=== PATIENT | female | born 1975 | race Caucasian/White ===

== ENCOUNTER 2018-07-02 19:11 | Observation (INO) | payer OTHER ==
--- OUTSIDE RECORDS SUMMARY | 2018-07-02 19:43 | XMS REPORT | Continuity of Care Document ---
:1975 External Reference #:[id number] Author Name Mattie Lyn Care Team Providers Name Role Phone Valentina Castellanos MD Primary Care Physician Unavailable Payers Type Date Identification Numbers Payment Provider Subscriber Expires: 2013 Policy Number: [id number] [employer] Rosanne Quinones PayID: [id number] [address] [address] [place] [address] Policy Number: [id number] [employer] Rosanne Quinones PayID: [id number] [address] [place] [address] Advance Directives Description No Information Available Problems Description No Information Family History Date Family Member(s) Problem(s) Comments Father Migraine Maternal Grandfather Cancer Maternal Grandmother Cancer Social History Type Date Description Comments Sex Unknown Lives With Children Lives With Male Partner Occupation legal administrative assistant ETOH Use Occasionally consumes alcohol Tobacco Use Start: Unknown Patient has never smoked Smoking Status Reviewed: 06/28/18 Patient has never smoked Allergies, Adverse Reactions, Alerts Date Description Reaction Status Severity Comments 02/11/2012 Penicillin Anaphylaxis Active Medications Medication Date Status Form Strength Qnty SIG Indications Ordering Provider Doxycycline Active Capsules 100mg 20caps bid po Unknown Hyclate 000 Turmeric Active Capsules 450mg every Unknown 000 day Co-Enzyme Q10 0 Active Capsules 100mg po qd Unknown 000 Biotin 0 Active Tablets 300mcg 2 tabs Unknown 000 every day Milk Thistle 0 Active Capsules 500mg every Unknown 000 day Folic Acid 0 Active Tablets 400mcg 1n po Unknown 000 qd Vitamin B-12 0 Active Tablets ER 1500mcg 1 po qd Unknown LA 000 L-Carnitine Active Capsules 250mg Unknown 000 Vitamin C Active Tablets 1000mg 1 by Unknown 000 mouth every day Proferrin ES Active Tablets 12mg Unknown 000 Horse Cedar Active Capsules 300mg Unknown 000 Ventolin HFA Hx Aerosol 108(90Base) 1units 1-2 Unknown 000 - mcg/ac puffs po qid 012 prn Vitamin D-1000 Hx Tablets 1000Unit 90tabs 1 po Unknown 000 - bid 012 Immunizations Description No Information Available Vital Signs Date Vital Result Comment 06/28/2018 1:07pm Height 66 inches 5'6" Weight 140.00 lb Heart Rate 68 /min BP Systolic 114 mmHg BP Diastolic 76 mmHg O2 % BldC Oximetry 99 % BMI (Body Mass Index) 22.6 kg/m2 07/28/2013 11:52am Heart Rate 67 /min BP Systolic Sitting 120 mmHg BP Diastolic Sitting 70 mmHg Respiratory Rate 16 /min 02/11/2012 3:31pm Height 67 inches 5'7" Weight 120.00 lb Heart Rate 68 /min Respiratory Rate 16 /min Body Temperature 98.4 F BMI (Body Mass Index) 18.8 kg/m2 Results Test Date Facility Test Result H/L Range Note Laboratory test 07/29/2013 [facility] Vitamin B3 1.66 ug/mL N [address] [place] [address] [phone] Vitamin B6 07/29/2013 [facility] Pyridoxal 9 g/L N 5-50 [address] [facility] 5[place] [address] [phone] Pyridoxic Acid 4 g/L N 3-30 2 Laboratory test 07/29/2013 [facility] Vitamin B2 Level 5 g/L N 1-19 3 [address] [place] [address] [phone] Vitamin B1 Whole Blood 161 nmol/L N 70-180 4 Urinalysis 02/28/2013 [facility] Urine Color Yellow [address] [place] [address] [phone] Urine Appearance Clear Urine Specific Broseley 1.023 1.010-1.030 Urine Esterase Negative Negative Urine Nitrate Negative Negative Urine Urobilinogen Negative E.U./dL Negative Urine Protein Negative mg/dL Negative Urine pH 7.0 5-9 Urine Blood Negative Negative Urine Ketones Trace mg/dL Abnormal Negative Urine Bilirubin Negative Negative Urine Glucose Negative mg/dL Negative Laboratory test 02/11/2012 [facility] Erythrocyte Sed <pending> finding [address] [place] [address] [phone] 1 Adult Reference Range >10 years Normal 0.50 - 8.45 Low < 0.50 High > 8.45 Pediatric Reference Range <10 years Normal 0.50 - 8.91 Low < 0.50 High > 8.91 The performance characteristics of the listed assay was validated by [facility]. The [place] FDA has not approved or cleared this test. The results of this assay can be used for clinical diagnosis without FDA approval. [facility]. is a CLIA certified, CAP accredited laboratory for performing high complexity assays such as this one. Test Performed by: [facility]. [address] [place] [address] 2 Test Performed by: [place] [address] Manager Web Application: Mouna Cifuentes, Ph.D. 3 Test Performed by: [place] [address] Manager Web Application: Mouna Cifuentes, Ph.D. 4 Test Performed by: [place] [address] Manager Web Application: Mouna Cifuentes, Ph.D. Procedures Date Code Description Status 07/27/2012 48718 ECHO Transthoracic, Real-Time 2D With Doppler And Color Completed Flow Encounters Type Date Location Provider Dx Diagnosis Office Visit 07/28/2013 [facility] Jorge Reyes 780.79 Malaise And 11:45a Services Of Cullen Weems M.D. Fatigue Other 799.59 Other Signs And Symptoms Involving Cognition Office Visit 03/01/2013 10:56a [facility] Eamon 780.4 Dizziness & Assoc,pc Shahnaz Corcoran Hospitalists Office Visit 02/28/2013 10:56a [facility] Ashley Gibson, 780.4 Dizziness & Assoc,vikas Zuniga Hospitalists Office Visit 05/10/2012 11:45a [facility] Tete M. 799.59 Other Signs And Services Of [facility] Sarmad Weems Symptoms Involving Cognition 780.79 Malaise And Fatigue Other Office Visit 02/11/2012 3:20p [facility] Chacho Richard 799.59 Other Signs And Infectious Sarmad Amaya Symptoms Diseases Involving Cognition Office Visit 01/22/2012 3:45p [facility] Tete Reyes 780.4 Dizziness & Services Of [facility] Sarmad Weems Giddiness 799.59 Other Signs And Symptoms Involving Cognition 346.90 Migraine Unspec W/O Intractable W/O Status Migrainosus Plan of Treatment 06/28/2018 - Shalonda Vera, NPR53.83 Other fatigueNew Labs:CBC Auto Diff, Ordered: 06/28/18Comp Metabolic Panel, Ordered: 06/28/18CRP High Sensitivity, Ordered: 06/28/18Zinc Serum, Ordered: 06/28/18Lead, Ordered: 06/28/18Ferritin, Ordered: 06/28/18Recommendations:Please follow up with Dr. Kirby I will send you your Basic Metabolic Rate and amount of calories youshould be including daily - calculate your daily intake consider using [employer] krista. check labsand we will follow up through portal.R01.1 Cardiac murmur, unspecifiedReferral:Portillo Friedman, DO, FACC, Cardiovsclr Disease
--- NOTE | 2018-07-02 21:32 | ED ---
Neurological HPI - HPI Summary HPI Summary: This patient is a 43 year old F presenting to [facility] with a chief complaint of neurological deficit since earlier today. The episode lasted several hours but is better right now. The patient rates the pain 3/10 in severity. Patient reports RUANO, slowed speech, muted senses, confusion, and difficulty communicating. The patient drove 2.5 hours south today. Upon arriving, she could not form sentences for the course of 30 minutes. [address] the 2.[address] back to [place], her boyfriend stated that her speech continued to be weird, she seemed confused, and her sentences were trailing off. At 18:00, the patient felt better, and her boyfriend confirmed that she was acting normal again. The RUANO moved from the left to right side throughout the day. Her normal migraines are not like the one today, she often has sensory overload instead of sensory muting. The patient took two Aspirin earlier today to treat the RUANO symptoms. PMHX migraines. Vitals in the room: HR 101 bpm, BP 140/91. - History of Current Complaint Chief Complaint: EDNeurologicalDeficit Stated Complaint: HEADACHE/CONFUSION Time Seen by Provider: 07/02/18 21:13 Hx Obtained From: Patient Hx Last Menstrual Period: 06/08/12 Onset/Duration: Sudden Onset, Started hours ago, Resolved Timing: Intermittent Episodes Lasting: - several hours Headache Location: Diffuse (Left) Pain Intensity: 3 Pain Scale Used: 0-10 Numeric Character: Sensory Loss, Impaired Speech, Confusion Associated Signs and Symptoms: Positive: Visual Changes, Headache, Confusion, Decreased Level of Consciousness, Impaired Speech - Allergy/Home Medications Allergies/Adverse Reactions: Allergies Allergy/AdvReac Type Severity Reaction Status Date / Time MS Penicillins [Penicillins] Allergy Severe DYSPNEA, Verified 07/02/18 19:39 SWEATING, "CAN'T BREATHE" PMH/Surg Hx/FS Hx/Imm Hx Cardiovascular History: Denies: Hx Pacemaker/ICD GI History: Reports: Hx Irritable Bowel Sensory History: Denies: Hx Hearing Aid Neurological History: Reports: Hx Migraine, Other Neuro Impairments/Disorders - hand tremors memory loss short term Psychiatric History: Denies: Hx Panic Disorder - Surgical History Surgery Procedure, Year, and Place: c/s. right breast bx (BREAST LUMP REMOVED) . liver bx Infectious Disease History: No Infectious Disease History: Reports: Hx Hepatitis - liver biopsy done Denies: Traveled Outside the [place] in Last 30 Days - Family History Known Family History: Positive: Other - IBS - Social History Alcohol Use: Daily Alcohol Amount: every other day Substance Use Type: Reports: None Smoking Status (MU): Never Smoked Tobacco Review of Systems Positive: Other - difficulty talking Neurological: Other - confusion, muted senses, Positive: Headache, Slurred Speech All Other Systems Reviewed And Are Negative: Yes Physical Exam - Summary Physical Exam Summary: VITAL SIGNS: Reviewed. GENERAL: Patient is a well-developed and nourished female who is lying comfortable in the stretcher. Patient is not in any acute respiratory distress. HEAD AND FACE: No signs of trauma. No ecchymosis, hematomas or skull depressions. No sinus tenderness. EYES: PERRLA, EOMI x 2, No injected conjunctiva, no nystagmus. EARS: Hearing grossly intact. Ear canals and tympanic membranes are within normal limits. MOUTH: Oropharynx within normal limits. NECK: Supple, trachea is midline, no adenopathy, no JVD, no carotid bruit, no c- spine tenderness, neck with full ROM. CHEST: Symmetric, no tenderness at palpation LUNGS: Clear to auscultation bilaterally. No wheezing or crackles. CVS: Regular rate and rhythm, S1 and S2 present, no murmurs or gallops appreciated. ABDOMEN: Soft, non-tender. No signs of distention. No rebound no guarding, and no masses palpated. Bowel sounds are normal. EXTREMITIES: FROM in all major joints, no edema, no cyanosis or clubbing. NEURO: Alert and oriented x 3. No acute neurological deficits. Speech is normal and follows commands. SKIN: Dry and warm Triage Information Reviewed: Yes Vital Signs On Initial Exam: Initial Vitals Temp Pulse Resp BP Pulse Ox 98.9 F 69 16 168/96 100 07/02/18 19:29 07/02/18 19:29 07/02/18 19:29 07/02/18 19:29 07/02/18 19:29 Vital Signs Reviewed: Yes Diagnostics - Vital Signs Vital Signs Temp Pulse Resp BP Pulse Ox 07/02/18 19:29 98.9 F 69 16 168/96 100 - Laboratory Result Diagrams: 07/02/18 22:04 07/02/18 22:04 Lab Statement: Any lab studies that have been ordered have been reviewed, and results considered in the medical decision making process. - CT Brain CT Interpretation Completed By: Radiologist Summary of CT Findings: No acute intracranial abnormality. ED physician has reviewed this report. Head/Neck CT Interpretation Completed By: Radiologist Summary of CT Findings: Normal head and neck exam. ED physician has reviewed this report. - EKG 22:18 Cardiac Rate: NL - 66 bpm EKG Rhythm: Sinus Rhythm Summary of EKG Findings: P waves, QRS complex, and T waves are within normal limits, T waves and intervals are normal, no ischemic changes. Course/Dx - Course Course Of Treatment: This patient is a 43 year old F presenting to [facility] with a chief complaint of neurological deficit since earlier today. The episode lasted several hours but is better right now. The patient rates the pain 3/10 in severity. Patient reports RUANO, slowed speech, muted senses, confusion, and difficulty communicating. An EKG reveals NSR 66 bpm, P waves, QRS complex, and T waves are within normal limits, T waves and intervals are normal, no ischemic changes. CTA head/neck reveal, per radiologist, normal head and neck exam. Brain CT reveals no acute intracranial abnormality. ED physician has reviewed this radiology report. Test results with no significant abnormalities. In the ED course the patient was given Iohexol. We discussed patient care with Dr. Garcia and they recommended admission. Patient will be admitted. The patient is agreeable with this plan. - Diagnoses Provider Diagnoses: TIA (transient ischemic attack) - Physician Notifications Discussed Care Of Patient With: Shena Garcia Time Discussed With Above Provider: 00:13 Instructed by Provider To: Admit As Inpatient Discharge - Sign-Out/Discharge Documenting (check all that apply): Patient Departure - admission - Discharge Plan Condition: Fair Disposition: ADMITTED TO [facility] Patient Education Materials: Transient Ischemic Attack (ED) Referrals: Valentina Castellanos MD [Primary Care Provider] - - Attestation Statements Document Initiated by Scribe: Yes Documenting Scribe: Gabriele Riojas Provider For Whom Scribe is Documenting (Include Credential): Alok Dudley MD Scribe Attestation: Gabriele Kim, remingtonibed for Alok Dudley MD on 07/03/18 at 0012. Status of Scribe Document: Ready
[2018-07-02 22:10] LABS: ABS Basophils 0.1 10^3/ul (0-0.2); ABS Eosinophils 0.2 10^3/ul (0-0.6); ABS Lymphocytes 3.5 10^3/ul (1.0-4.8); ABS Monocytes 0.4 10^3/ul (0-0.8); ABS Neutrophils 5.4 10^3/ul (1.5-7.7); ABS Nucleated RBC 0 10^3/ul; Eosinophil % 2.4 %; Hematocrit 38 % (35-47); Hemoglobin 12.6 g/dl (12.0-16.0); Lymphocyte % 36.3 %; Mean Corpuscular HGB Conc 33 g/dl (31-36); Mean Corpuscular Hemoglobin 31 pg (27-31); Mean Corpuscular Volume 94 fL (80-97); Nucleated Red Blood Cells % 0; Platelet Count 365 10^3/ul (150-450); Red Blood Count 4.05 10^6/ul (4.00-5.40); Red Cell Distribution Width 14 % (10.5-15); White Blood Count 9.6 10^3/ul (3.5-10.8)
[2018-07-02 22:26] LABS: ALT 7 U/L (7-52); AST 12 U/L (13-39); Albumin 4.4 g/dL (3.2-5.2); Albumin/Globulin Ratio 1.9 (1-3); Alkaline Phosphatase 33 U/L (34-104); Anion Gap 7 mmol/L (2-11); BUN/Creatinine Ratio 15.8 (8-20); Blood Urea Nitrogen 12 mg/dL (6-24); CO2 Carbon Dioxide 24 mmol/L (22-32); Calcium 8.9 mg/dL (8.6-10.3); Chloride 109 mmol/L (101-111); EGFR African American 99.6 (>60); EGFR Non-African American 82.3 (>60); Globulin 2.3 g/dL (2-4); Glucose 92 mg/dL (70-100); Potassium 4.1 mmol/L (3.5-5.0); Sodium 140 mmol/L (135-145); Total Protein 6.7 g/dL (6.4-8.9)
[2018-07-02 22:28] LABS: Activated Partial Thrombo Time 33.6 seconds (26.0-36.3); INR 0.88 (0.77-1.02)
[2018-07-02] MEDS ORDERED: Iohexol 350* (CONTRAST) 500 ML MDV IV ONE ×2 (22:33→23:04)
[2018-07-03] MEDS ORDERED: Ondansetron INJ* 2 MG/ML VIAL IV PRN (01:41)
[2018-07-03] MEDS ORDERED: Acetaminophen TAB* 325 MG PO PRN (01:41)
[2018-07-03 02:06] LABS: HCG Pregnancy < 0.60 mIU/mL
[2018-07-03] MEDS: Atorvastatin* 40 MG TAB PO SCH ×2 (02:28→20:26)
--- NOTE | 2018-07-03 03:32 | HP ---
CC: Dr. Castellanos HISTORY AND PHYSICAL: DATE OF ADMISSION: 07/03/18 PRIMARY CARE PROVIDER: Dr. Valentina Castellanos. CHIEF COMPLAINT: Change in mentation. HISTORY OF PRESENT ILLNESS: This is a 43-year-old female with a history of migraines, though she reports that her episodes are very infrequent, who now presents to the emergency room because of a neurological symptom. The patient reports that today she drove to her boyfriend's place, and at about 2 p.m. when they were at a restaurant, she experienced an episode of aphasia where she describes that she knew what she wanted to say but was having trouble expressing her thoughts. She was very confused, her sensory perception had decreased, she was also having slurred speech, and the episode lasted 45 minutes. After the episode resolved, she ended up having a headache, for which she took aspirin. She then decided to come to the emergency room for further evaluation and care. Her symptoms had actually resolved an hour prior to arrival, she was 2 hours away from home. Currently, she is asymptomatic. However, she is having mild headache, 3/10 on the left frontal region. PAST MEDICAL HISTORY: 1. Migraine. 2. History of lead poisoning. 3. History of Mycoplasma pneumoniae. PAST SURGICAL HISTORY: 1. . 2. Liver biopsy. 3. Breast biopsy. HOME MEDICATIONS: 1. Ferrous sulfate 325 mg daily. 2. Vitamin B complex 1 cap daily. ALLERGIES: Include PENICILLINS. FAMILY HISTORY: Mother: Hyperlipidemia. Father: The patient's father young unrelated to any medical issues. SOCIAL HISTORY: The patient lives at home. She does not smoke and does drink 2 beers a day. REVIEW OF SYSTEMS: There is no fever, no chills, she has chronic fatigue, no changes in her vision or hearing, no sore throat, no chest pain, no palpitations , no shortness of breath, no cough, no sputum production, no abdominal pain, no nausea, no vomiting, no diarrhea, no rashes or lesions, no hematuria, no dysuria , no hesitancy upon urination, no joint aches, no back pain. She is having a headache currently. For neurological symptoms, see HPI. Of note, throughout the entire episode, the patient did not feel as if she had any focal weakness or numbness. PHYSICAL EXAMINATION GENERAL: This is a well-developed, well-nourished female, appears slightly anxious, lying in an ER stretcher, in no acute distress. VITAL SIGNS: Blood pressure of 168/96, pulse ox of 100% on room air, respiratory rate of 16, pulse of of 69, temperature of 98.9 Fahrenheit. HEENT: Pupils are equal, round, reactive to light. Atraumatic, normocephalic. There is no oropharyngeal erythema. LUNGS: There is no tachypnea, no use of accessory muscles. Lungs are clear to auscultation with no wheezing, rales, or rhonchi. HEART: There is no chest wall tenderness, regular rate and rhythm. No murmurs , rubs, or gallops. ABDOMEN: Bowel sounds are normoactive in all 4 quadrants. Abdomen is soft, nontender, nondistended. NEUROLOGIC: She alert and oriented x3. Her tongue is midline. Speech is clear and coherent. There is no facial droop. She is able to identify objects. She is able to read full sentences and understand what they mean. There is no dysmetria, no dysdiadochokinesia. Motor is 5/5 all 4 extremities. Sensation to light touch is intact. LABORATORY DATA AND IMAGING: White count of 9.6, hemoglobin of 12.6, hematocrit of 38. INR of 0.88, APTT of 33.6. AST of 12, ALT of 7, alk phos of 33. Beta HCG less than 0.6. Sodium of 140, potassium of 4.1, chloride of 109, bicarb of 24, BUN 12, creatinine of 0.76. The patient underwent a brain CT, which showed no acute intracranial abnormality. EKG showed normal sinus rhythm. Head CTA revealed no abnormal brain enhancement. CTA of the neck showed normal neck CTA. IMPRESSION AND PLAN: 1. Transient ischemic attack versus complex migraine: We will start the patient on daily aspirin. Her prior lipid panel was done in April of 2018, showed LDL greater than 100. So, we will start the patient on Lipitor as well. We will start the patient on neuro checks, order an MRI as well as an echocardiogram for further evaluation. She is currently out of the tPA time window, her symptoms have resolved and CTA does not show any reason she would need thrombectomy for. 2. History of migraines: Tylenol as needed. Do neuro checks, regular diet. 3. Further recommendations based on further studies and hospital progress. Continue other home medications. [id number] #: [id number] JOI
[2018-07-03] MEDS: Ferrous Sulfate TAB* 325 MG PO SCH (08:35)
[2018-07-03] MEDS: Aspirin 81 mg CHEW TAB* 81 MG TAB.CHEW PO SCH (08:35)
[2018-07-03 10:20] LABS: Cholesterol 217 mg/dL; HDL Cholesterol 81.9 mg/dL; LDL Cholesterol 122 mg/dL; Triglycerides 64 mg/dL
--- NOTE | 2018-07-03 11:58 | ECHO ---
Patient: HOWARD MCCORD [facility] Rec#: [id number] : 1975 Date: 07/03/2018 Age: 43y Weight: kg / NaN lbs Sex: F Room#: 439 Admit Date#: 07/03/2018 Type: Inpatient Referring: Shena Garcia Reading: Edwar Tobar MD Pipe Changer: Greta Ruffin RDCS Pipe Changer: SUKHDEV CC: Valentina Castellanos Transthoracic Echocardiogram Indication: TIA BP: 121/84 HR: 65 Rhythm: NSR Findings History: Migrains , recent episode of aphasia. Technical Comments: The study quality is good. Completed at 1135. Left Ventricle: The left ventricular chamber size is normal. Global left ventricular wall motion and contractility are within normal limits. There is normal left ventricular systolic function. The estimated ejection fraction is 55-60%. The assessment of diastolic function is non-diagnostic. Left Atrium: The left atrial chamber size is normal. Right Ventricle: The right ventricular cavity size is normal. The right ventricular global systolic function is normal. Right Atrium: The right atrial cavity size is normal. Aortic Valve: The aortic valve is trileaflet. There is no evidence of aortic valve thickening. There is no evidence of aortic regurgitation. There is no evidence of aortic stenosis. Mitral Valve: The mitral valve leaflets appear normal. There is a trace of mitral regurgitation. Tricuspid Valve: The tricuspid valve leaflets are normal. There is a physiologic tricuspid regurgitation. Unable to estimate the right ventricular systolic pressure. Pulmonic Valve: The pulmonic valve appears normal in structure and function. There is no evidence of pulmonic regurgitation. There is no pulmonic stenosis. Pericardium: There is no significant pericardial effusion. Aorta: The ascending aorta is not well visualized. There is no dilatation of the aortic arch. There is no dilation of the aortic root. Pulmonary Artery: The main pulmonary artery is not well visualized. Venous: The inferior vena cava appears normal in size. There is a greater than 50% respiratory change in the inferior vena cava dimension. Conclusions There is normal left ventricular systolic function. The estimated ejection fraction is 55-60%. Global left ventricular wall motion and contractility are within normal limits. Normal cardiac chamber sizes. Functionally benign heart valves. There is no prior echocardiogram available to compare with at this time. Measurements Name Value Normal Range RVIDd (AP) 2D 2.8 cm (0.9 - 2.6) RVDdMajor (2D) 3.2 cm (2.2 - 4.4) RAd ISD 4CH 4.4 cm (3.4 - 4.9) RA (A4C)W 3.3 cm (2.9 - 4.6) IVSd (2D) 0.8 cm (0.6 - 1) LVPWd (2D) 0.7 cm (0.6 - 1) LVIDd (2D) 3.8 cm (3.6 - 5.4) LVIDs (2D) 2.9 cm - LV FS (2D) 24 % (25 - 45) Aortic Annulus 1.8 cm (1.4 - 2.6) Ao root diameter (2D) 3.1 cm (2.1 - 3.5) Aortic arch 1.8 cm (1.8 - 3.4) Descending Ao 1.2 cm - LA dimension (AP) 2D 2.8 cm (2.3 - 3.8) LAd ISD 4CH 5 cm (2.9 - 5.3) LA ISD 4CH W 4.3 cm (2.5 - 4.5) Name Value Normal Range LA ESV SP 4CH (A/L) 59 ml - LA ESV SP 2CH (A/L) 52 ml - LA ESV BP (A/L) 57 ml - LA ESV BP (A/L) index 33.28 ml/m2 - LA ESV SP 4CH (MOD) 55 ml - LA ESV SP 2CH (MOD) 51 ml - Name Value Normal Range MV E-wave Vmax 0.7 m/sec - MV deceleration time 223 msec - MV A-wave Vmax 0.8 m/sec - MV E:A ratio 0.89 ratio - LV septal e' Vmax 0.08 m/sec - LV lateral e' Vmax 0.13 m/sec - LV E:e' septal ratio 8.75 ratio - LV E:e' lateral ratio 5.83 ratio - Name Value Normal Range AV Vmax 1.3 m/sec - AV VTI 27.8 cm - AV peak gradient 6.65 mmHg - AV mean gradient 3.32 mmHg - LVOT Vmax 1.1 m/sec - LVOT VTI 26 cm - LVOT peak gradient 5.06 mmHg - LVOT mean gradient 2.46 mmHg - Name Value Normal Range TR peak gradient 26 mmHg - RAP 3 mmHg - IVC diameter 1.9 cm - Name Value Normal Range PV Vmax 0.7 m/sec - PV peak gradient 1.89 mmHg -
--- NOTE | 2018-07-03 12:08 | PN ---
Subjective Date of Service: 07/03/18 Interval History: Ms. Quinones is feeling better today. She reports that all her symptoms from yesterday have resolved and have not recurred since arriving to the hospital. Denies CP, SOB, N/V, neuro deficits. She reports a long history of migraines, occurring approx once yearly at this point. She usually has visual auras which she did not experience yesterday. She feels as though this episode was opposite to her typical migraines in that she felt all of her senses were dulled. She did have an episode last year where she reports she had low potassium and was experiencing frequent heart palpitations. This resolved with potassium repletion and has not recurred. Family History: Unchanged from Admission Social History: Unchanged from Admission Past Medical History: Unchanged from Admission Objective Active Medications: Acetaminophen (Tylenol Tab*) 650 mg PO Q6H PRN FEVER/HEADACHE Aspirin (Aspirin 81 Mg Chew Tab*) 81 mg PO DAILY [facility] Atorvastatin Calcium (Lipitor*) 40 mg PO 2100 [facility] Ferrous Sulfate (Ferrous Sulfate Tab*) 325 mg PO DAILY [facility] Ondansetron HCl (Zofran Inj*) 4 mg IV Q6H PRN NAUSEA Vital Signs - 8 hr 07/03/18 07/03/18 07:44 07:47 Temperature 98.0 F Pulse Rate 67 Respiratory 16 16 Rate Blood Pressure 110/64 (mmHg) O2 Sat by Pulse 98 Oximetry Oxygen Devices in Use Now: None Appearance: Middle-aged female sitting in bed in NAD Eyes: No Scleral Icterus Ears/Nose/Mouth/Throat: Mucous Membranes Moist Neck: NL Appearance and Movements; NL JVP, Trachea Midline Respiratory: Symmetrical Chest Expansion and Respiratory Effort, Clear to Auscultation Cardiovascular: NL Sounds; No Murmurs; No JVD, RRR Abdominal: NL Sounds; No Tenderness; No Distention Extremities: No Edema Skin: No Rash or Ulcers Neurological: Alert and Oriented x 3, NL Sensation, NL Muscle Strength and Tone Lines/Tubes/Other Access: Clean, Dry and Intact Peripheral IV Nutrition: Taking PO's Result Diagrams: 07/02/18 22:04 07/02/18 22:04 Assess/Plan/Problems-Billing Assessment: Ms. Quinones is a 43 yo F with PMH of migraines and mycoplasma pneumoniae; who presented to the ED with c/o change in mentation and aphasia and was admitted because of the concern for TIA. - Patient Problems (1) Migraine Code(s): G43.909 - MIGRAINE, UNSP, NOT INTRACTABLE, WITHOUT STATUS MIGRAINOSUS Comment: - Likely that this event represented an atypical migraine, but warrents workup for TIA - Appreciate Neurology consult; recommends MRI and continuing aspirin at this point, will need outpt f/u - LDL moderately elevated - No acute findings on CTA head/neck or CT brain - Echo shows EF 55-60%, no systolic dysfunction, benign valves - MRI pending - Continue aspirin, atorvastatin (2) DVT prophylaxis Comment: - SCDs (3) Full code status Code(s): Z78.9 - OTHER SPECIFIED HEALTH STATUS Comment: Status and Disposition: Observation pending MRI tomorrow. Anticipate d/c home when medically stable. Attending: Xu Gamez
--- NOTE | 2018-07-03 13:25 | CONS ---
CC: Dr. Valentina Castellanos * CONSULTATION REPORT: DATE OF CONSULT: 07/03/18 LOCATION: She is currently in room 439. PRIMARY CARE PROVIDER: Dr. Valentina Castellanos. REASON FOR CONSULT: Altered mental status with some changes in her speech. HISTORY OF PRESENT ILLNESS: Ms. Quinones is a very nice 43-year-old female with a history of migraine headaches dating back years, a history of lead poisoning, and Mycoplasma pneumoniae about 8 years ago. She notes that she now has about 1 headache every 6 to 12 months. These headaches are typically unilateral in nature, associated with light and sound sensitivity and nausea and vomiting. They are preceded by visual positive scotoma. She typically becomes very hyperacute to noises during the headaches. They will last for hours at a time. She has taken Zomig in the past with some benefit, but it caused some side effects that she did not like, so currently she takes 2 Tylenol and will usually sleep the headache off. Her last headache like this was approximately 6 to 8 months ago in the spring/summer. Stress is a trigger, but otherwise aware of no triggers. Yesterday, she was in her usual state of health. She was driving to meet her boyfriend about 2 hours away. Around 2 p.m., she was eating lunch with her boyfriend and he noticed that she was starting to have some difficulty speaking. She states that her speech was somewhat slurred and she had difficulty with word finding and word production. She also notes that the kelsey of her speech was off and that she was speaking much slower than she normally does, about 50% slower. Initially, this started with speech symptoms. It was not preceded by any headache or visual aura. After about 45 minutes, she noted the onset of a headache, which was severe in nature, right- sided, more stabbing. She had no nausea, vomiting, or light sensitivity. The headache did improve somewhat after she took some aspirin that she had with her , but she continued to have a headache until about 7 p.m. She arrived in the ER here about 6 p.m. By the time she was fully evaluated in the room around 10 p.m., her headache had largely resolved, although she states she does feel tired. She states that this headache was very different than her normal headache. While it was unilateral, she had decreased awareness to her surroundings. She felt like her sensations were diminished versus her normal migraines, which are typically hyperacute. She denies any other focal numbness, tingling, or weakness. She denied any visual changes. She has had no known fevers or chills. No recent illnesses. She denies any ringing in her ears. The symptoms came on suddenly without warning and the headache slowly resolved. She notes having a history of Mycoplasma pneumoniae. She states that her titers, both IgM and IgG, have continued to rise over the years. She did follow with Dr. Get Kirby at one point. She is to see a mycoplasma specialist in [place] soon. She denies any recent fevers, cough, sputum production, hemoptysis, diarrhea, constipation, fevers, chills, insect bites. She does travel frequently, but not out of the country. No sick contacts that she is aware of. Currently, she is feeling much better, although she is anxious. She is concerned that she may have had a TIA, although she is unclear what a TIA is. She denies any history of seizures in the past. No family history, head trauma, meningitis that she is aware of, issues. She also denies any family history or personal history of blood clots, spontaneous abortions, pulmonary emboli, or other symptoms to suggest a hypercoagulable state. PAST MEDICAL HISTORY: As noted above. 1. Migraine. 2. Mycoplasma pneumoniae 8 years ago. 3. History of lead poisoning 8 years ago. PAST SURGICAL HISTORY: Includes breast biopsy, liver biopsy, and . MEDICATIONS: At home, she takes: 1. Ferrous sulfate. 2. Vitamin B complex. ALLERGIES: She has allergy to PENICILLIN. FAMILY HISTORY: Significant for father who apparently at a young age from an accidental . Mother with hyperlipidemia. SOCIAL HISTORY: She denies any tobacco use. She is a vegetarian. She denies any illicit substance use. She does drink approximately 2 beers per day. She has been doing that for several months. REVIEW OF SYSTEMS: Review of systems in 14-organ systems is as noted above; otherwise, negative. PHYSICAL EXAM: Vital Signs: Temperature 98; she has been afebrile, pulse in the 60s, respiratory rate 16 to 18, pulse ox 98% to 100% on room air, blood pressure has been 110/64 to 135/93 to 116/96. In general, she is a well- nourished, well- developed female, in no acute distress. She is sitting in her hospital bed. She is pleasant, well dressed, well groomed. HEENT: She is normocephalic, atraumatic. Sclerae are anicteric. Mucous membranes are moist. Oropharynx is clear. Nares are patent. Neck is supple. No thyromegaly. No carotid bruits. No meningismus. Chest: Clear to auscultation bilaterally. Cardiovascular is regular rate and rhythm without murmurs, gallops, or rubs. Abdomen: Nontender, nondistended. Extremities: No clubbing, cyanosis, or edema. Her skin is warm and dry. On neurologic exam, she is awake, alert, and oriented x3. Her speech is fluent. There is no dysarthria. Repetition is intact. Recall of recent and remote events is intact. Vocabulary is intact. Her mood is anxious. Affect, mood congruent. Cranial Nerves: Pupils are equal , round, and reactive to light and accommodation. Extraocular muscles are intact. There is no diplopia, nystagmus, or ptosis. Visual bethea are full. Her facial sensation is intact to light touch. She has a very subtle right lower facial asymmetry. 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 Her hearing is intact bilaterally. Palate raises symmetrically. Tongue is midline. Sternocleidomastoid and trapezius are 5/5. Motor Exam: Good tone and bulk. No cogwheeling. No atrophy. 5/5 throughout. No drift. Sensation is intact to light touch and pinprick in all extremities. No deficits. DTRs are 1+ and symmetric in the upper and lower extremities, equivocal Babinski's, symmetric. [id number] and rapid alternating movements are intact without dysmetria or dysdiadochokinesia. No tremors, resting or intention bilaterally. Gait: She is able to stand, walk normally. Good stride. Romberg, minimal sway with eyes open and close. DIAGNOSTIC STUDIES/LAB DATA: Lab work includes a CBC with diff that is normal. An INR of 0.88, PTT of 33.6. Complete metabolic profile with an AST of 12, alk phos of 33. Triglycerides 64, cholesterol 217, LDL 122, HDL 81.9. Beta hCG less than 0.60. Imaging includes a brain CT done yesterday in the ER, which is negative. No ventriculomegaly. No obvious strokes or white matter disease appreciated. She had a CT angiogram done of the head and neck yesterday in the ER, both of which are normal. There is no evidence of stenosis, aneurysm, vascular malformation. ASSESSMENT AND PLAN: Ms. Quinones is a 43-year-old female with no significant risk factors for stroke, has a history of migraines in the past; now approximately 1 or 2 per year, associated with nausea, vomiting, light and sound sensitivity, unilateral in nature, dull; although severe in pain, some visual aura beforehand who presented to the ER yesterday with initial onset of speech difficulties, word- finding difficulties, change in kelsey, change in word production, although she was very aware of this during the entire time, subsequently developed a headache which improved somewhat with aspirin, but was persistent, severe in nature, unilateral, although she states it was different than her normal migraines. This lasted for several hours and slowly resolved. Her speech issues also improved and resolved after several hours. Currently, she is asymptomatic. At this point, despite the fact that her headache and presentation was different than her normal migraines, I continue to suspect that she is suffering from a complicated migraine. The description of the events is very atypical for a transient ischemic attack or stroke. Typically, transient ischemic attacks and strokes are not associated with pain, although there are exceptions, given the nature of her presentation with speech difficulties followed by intense headache, the description is much more consistent with a complicated migraine. She has no seizure risk factors. My suspicion for underlying seizure is extremely low. The semiology is not consistent. She has no evidence of mass effect, aneurysm that might cause such a presentation, she has no evidence of intracranial hemorrhage that could cause pain and focal neurologic deficits. She has no meningismus, fevers, white count that might suggest an infectious process. Interestingly, she does have this history of Mycoplasma pneumoniae dating back 8 years, followed by ID, with what she describes as increasing titers. My suspicion that she would have something like mycoplasma meningitis is extremely low. Given the unusual nature of her symptoms, an MRI of the brain has been ordered. I would like to get this with contrast as well given her history of infectious disease. Echocardiogram has been done as well. For now, we will continue her aspirin, but I am considering stopping this as again the suspicion for a transient ischemic attack or stroke is very low. I will await the MRI tomorrow and make further recommendations. For now, I will continue her current management. Thank you for the opportunity to participate in the care of this very interesting patient. [id number]/[facility] #: [id number] JOI
--- NOTE | 2018-07-04 08:47 | PN ---
Subjective Date of Service: 07/04/18 Length of Stay: 1 Days Interval History: No issues overnight. No further speech difficulties, no focal numbness, tingling or weakness. No palpitations. No vision symptoms. She feels back to her baseline. She has had no further headaches. Feeling fine. Anxious to find out the results of the pending MRI. Echo: Conclussions: There is normal left ventricular systolic function The estimated EF is 55-60% Global left ventricular wall motion and contractility are WNL Normal cardiac chamber sizes Functionally benign heart valves No prior echo for comparison Family History: Unchanged from Admission Social History: Unchanged from Admission Past Medical History: Unchanged from Admission Objective Active Medications: Acetaminophen (Tylenol Tab*) 650 mg PO Q6H PRN PRN Reason: FEVER/HEADACHE Aspirin (Aspirin 81 Mg Chew Tab*) 81 mg PO DAILY [facility] Last Admin: 07/03/18 08:35 Dose: 81 mg Atorvastatin Calcium (Lipitor*) 40 mg PO 2100 [facility] Last Admin: 07/03/18 20:26 Dose: Not Given Ferrous Sulfate (Ferrous Sulfate Tab*) 325 mg PO DAILY [facility] Last Admin: 07/03/18 08:35 Dose: 325 mg Ondansetron HCl (Zofran Inj*) 4 mg IV Q6H PRN PRN Reason: NAUSEA Vital Signs 07/03/18 07/03/18 07/03/18 11:20 15:21 19:34 Temperature 99.3 F 98.3 F 98.5 F Pulse Rate 66 70 76 Respiratory 16 16 16 Rate Blood Pressure 134/77 110/56 111/63 (mmHg) O2 Sat by Pulse 100 99 100 Oximetry 07/03/18 07/03/18 07/04/18 20:00 23:49 03:29 Temperature 98.4 F 97.8 F Pulse Rate 61 56 Respiratory 16 20 20 Rate Blood Pressure 109/71 109/54 (mmHg) O2 Sat by Pulse 99 100 Oximetry Intake and Output Last 24 Hours 07/02/18 07/03/18 07/04/18 07/05/18 06:59 06:59 06:59 06:59 Intake Total 0 1440 Balance 0 1440 Weight 142 lb 4.8 oz Intake: Oral 0 1440 Other: # Bowel Movements 0 # Voids 0 0 Oxygen Devices in Use Now: None Neurology Exam: General: Awake, Alert, Oriented x3 HEENT: Normocephalic/atraumatic, sclera anicteric, mucous membranes moist Neck: Supple Chest: Clear to auscultation bilaterally Cardiovascular: Regular rate and rhythm without murmurs, rubs, gallops Abdomen: Soft, nontender/nondistended Extremities: No clubbing, cyanosis, or edema Neurological Findings: Awake, Alert, Oriented x3 Speech: fluent without dysarthria, repetition intact Cranial Nerve: PEERL, EOM intact, VFF, no nystagmus, mild right lower lip droop (chronic), facial sensation intact, hearing intact to finger rub bilaterally, palate elevates symmetrically, tongue midline, SCM and Trapezius s/s. Motor: 5/5 throughout, proximal and distal extremities x4 tone/bulk normal Sensation: intact to LT/PP bilaterally upper and lower extremities Deep Tendon Reflex: 2+ symmetric in the upper/lower extremities Finger to nose, rapid alternating movements intact without tremor, no dysdiadochokinesia Gait: intact with good arm swing and stride Result Diagrams: 07/02/18 22:04 07/02/18 22:04 Assessment/Plan Assessment: 43 year old female with a history of migraine headaches (infrequent) and distant lead poisoning, mycoplasma pneumoniae (8 years ago), otherwise healthy with a sudden onset of speech difficulties and then migraineous headache. 1. Suspect complicated migraine. Plan for MRI today. --Given her age, prior history of migraines, lack of any other significant medical issues or risk factors, my suspicion for stroke/TIA is very low. She denies a history of clotting disorders and is not on hormone/BCP therapy,no history of heart issues or arrhrythmia. She is a non-smoker with no prior history of TIA like symptoms --DDx includes demyelinating disease but typically the symptoms last much longer and are not associated with pain. MRI as noted. --CTA and Echo look ok --If the MRI is negative, I do not think she needs to be on chronic ASA therapy. Her cholesterol is elevated but she is a vegetarian and would like to work on dietary modification before starting statin. She refused statin this am --If MRI is negative, I think she can go home today and can follow up with me in 8-12 weeks. I told her to return to the ER immediately with any return of symptoms or new neurologic symptoms.
[2018-07-04] MEDS: Aspirin 81 mg CHEW TAB* 81 MG TAB.CHEW PO SCH (09:08)
[2018-07-04] MEDS: Ferrous Sulfate TAB* 325 MG PO SCH (09:08)
[2018-07-04] MEDS ORDERED: Gadoteridol* (CONTRAST) 279.3 MG/ML 10 ML IV ONE (10:50)
[2018-07-04 15:24] VITALS: BP 114/74
--- NOTE | 2018-07-04 20:33 | DS ---
CC: Dr. Shar Teague; Shalonda Vera NP * DISCHARGE SUMMARY: DATE OF ADMISSION: 07/03/18 DATE OF DISCHARGE: 07/04/18 PRIMARY CARE PROVIDER: Shalonda Vera NP. NEUROLOGIST INVOLVED IN THIS CASE: Dr. Shar Teague. ATTENDING PROVIDER: Ashley Jiménez MD * (DICTATED BY COLLEEN WHALEY NP ) HOSPITAL COURSE: This is a very pleasant 43-year-old female who presented to the emergency department with a complaint of transient aphasia and some migraine pain. Please refer to the admitting H and P by Dr. Garcia. However, in short, the patient states she had trouble expressing words and thoughts. There was some garbled and slurred speech and then headache followed these symptoms. She came to the emergency department for evaluation because she does have migraine history; however, these symptoms were greatly different from her usual migraine symptoms. She was admitted for rule out TIA, CVA. She underwent some imaging of the brain. She had a brain CT in the emergency department, which showed no acute intracranial abnormalities. She had a transthoracic echocardiogram on 07/03/18, which showed normal EF of 55% to 60%, global left ventricular wall motion and contractility are within normal limits, chamber size is normal, functionally benign heart valves and essentially normal echo. She was seen in consultation by Dr. Shar Teague of Neurology, who recommended MRI with ayesha and also CTA. The CTA was normal. The MRI was also normal. The patient did have a moderately elevated LDL that was over 100; however, she refused statin and is more interested in dietary modifications. The patient was cleared for discharge on 07/04/18. DISCHARGE DIAGNOSES: 1. Complex migraine. 2. Hyperlipidemia. DISCHARGE MEDICATIONS: With no changes: 1. Vitamin B 1 cap p.o. daily. 2. Ferrous sulfate 325 mg p.o. daily. 3. Tylenol 650 mg p.o. q.6 hours as needed. REVIEW OF SYSTEMS: On the day of discharge, the patient denies any fever, fatigue, or chills. No headache, no blurry vision, no nausea, no vomiting, no abdominal pain, no chest pain, no shortness of breath, and no further constitutional complaints. PHYSICAL EXAMINATION: Reveals a well-appearing female in no acute distress. Vital Signs: Blood pressure 118/69, heart rate 59, O2 saturation 100% on room air, respiratory rate 20, temperature 97.2. HEENT: The patient is atraumatic, normocephalic. PERRLA with nonicteric sclerae. Oral mucosa is moist. Tongue is midline. Neck is supple and nontender. No JVD noted. No carotid bruit auscultated. Cardiovascular: S1, S2 present. No murmurs, gallops, or rubs noted. Rate and rhythm are regular. Lungs are clear bilaterally to auscultation with no wheezing, rhonchi, or rales. Abdomen is soft, nontender, nondistended. No organomegaly appreciated. Positive bowel sounds in all 4 quadrants. : Deferred. Musculoskeletal: There is no clubbing, no cyanosis, no edema. She has a steady gait. Full range of motion. Gross motor and sensation are intact. Neurologic: She is grossly intact with no current focal deficits. Psychiatric: She is cooperative and appropriate. LABORATORY DATA: WBC is 9.6, RBC is 4.05, hemoglobin 12.6, hematocrit 38, platelets 365. Sodium 140, potassium 4.1, chloride 109, CO2 of 24, BUN 12, creatinine 0.76, GFR 82.3, glucose 92, AST is 12, ALT is 7, alk phos 33, albumin is 4.4, triglycerides 64, total cholesterol 217, LDL was 122, HDL is 81.9. Beta quant was negative. IMAGING: As noted above. DISPOSITION: The patient will be discharged to home. She is in stable condition. FOLLOWUPS: The patient was instructed to follow up with Shalonda Vera NP as needed and Dr. Shar Teague in the next 8 weeks for continued management of her headaches and recommendations as needed. DIET: Regular as tolerated. ACTIVITY: Progressed as tolerated. TIME SPENT: Approximately 60 minutes interfacing with the patient, evaluating her diagnostic tests, and planning discharge plan of care. COLLEEN WHALEY NP [id number]/[facility] #: [id number] MTDD
== END 2018-07-04 15:49 | disposition home or self-care (01) ==
LOC: ED 19:11 → MEDTELE 07-03 01:34
PROVIDERS: ADMIT Internal Medicine; ATTEND Internal Medicine
DX: G43.809 Other migraine, not intractable, without status migrainosus (principal); E78.5 Hyperlipidemia, unspecified; R41.0 Disorientation, unspecified; Z77.011 Contact with and (suspected) exposure to lead; Z88.0 Allergy status to penicillin
CPT/HCPCS: 36415; 70450; 70496; 70498; 70553; 80053; 80061; 84702; 85025; 85610; 85730; 93005; 93306; 96374; 99282; A9270-GY; A9579; G0378; Q9967

== ENCOUNTER 2019-01-24 15:51 | Emergency (ER) | payer OTHER ==
[2019-01-24 16:01] VITALS: BP 126/86
--- NOTE | 2019-01-24 17:18 | UC ---
Cardiac HPI - HPI Summary HPI Summary: 43-year-old female presents with complaints of intermittent chest pain and shortness of breath. States that 10 days ago she was hiking with her sons when she had a sudden onset of feeling as if she could not catch her breath along with intermittent sharp left sided chest pains near the bottom of her lung. States she continued hiking for about 30 minutes and then rested and symptoms subsided. States she has been feeling okay since that time until yesterday when she had a single episode of sharp right sided chest pain near the bottom of her lung. States she continues to feel as if she cannot get a full breath. Denies fever, chills, URI symptoms, cough, diaphoresis, palpitations, abdominal pain, nausea, or vomiting. Reports she has an appointment scheduled with her primary care provider tomorrow to discuss her symptoms. - History of Current Complaint Chief Complaint: UCGeneralIllness Stated Complaint: RESP COMPLAINT Time Seen by Provider: 01/24/19 16:32 Hx Obtained From: Patient Hx Last Menstrual Period: due now Pain Intensity: 0 - Allergy/Home Medications Allergies/Adverse Reactions: Allergies Allergy/AdvReac Type Severity Reaction Status Date / Time Penicillins Allergy Severe Difficulty Verified 01/24/19 15:56 Breathing PMH/Surg Hx/FS Hx/Imm Hx Previously Healthy: Yes Neurological History: Migraine - Surgical History Surgical History: Yes Surgery Procedure, Year, and Place: c/s. right breast bx (BREAST LUMP REMOVED) . liver bx - Family History Known Family History: Positive: Other - IBS - Social History Occupation: Works From/At Home Lives: With Family Alcohol Use: Occasionally Alcohol Amount: 2 beers a day Substance Use Type: None Smoking Status (MU): Never Smoked Tobacco - Immunization History Most Recent Influenza Vaccination: pt refused Most Recent Tetanus Shot: unk Most Recent Pneumonia Vaccination: never had- pt states she doesnt want Review of Systems All Other Systems Reviewed And Are Negative: Yes Constitutional: Negative: Fever, Chills Skin: Negative: Rash ENT: Negative: Sore Throat, Nasal Discharge, Sinus Congestion, Sinus Pain/ Tenderness Respiratory: Positive: Shortness Of Breath. Negative: Cough Cardiovascular: Positive: Chest Pain. Negative: Palpitations Gastrointestinal: Negative: Abdominal Pain, Vomiting, Nausea Genitourinary: Positive: Negative Musculoskeletal: Positive: Negative Neurological: Positive: Negative Is Patient Immunocompromised?: No Physical Exam - Summary Physical Exam Summary: GENERAL APPEARANCE: Well developed, well nourished, alert and cooperative, and appears to be in no acute distress. EYES: Conjunctiva clear. No drainage. PERRL, EOM intact. Vision is grossly intact. EARS: External auditory canals and tympanic membranes clear, hearing grossly intact. NOSE: No nasal discharge. THROAT: Pharynx normal No tonsilar inflammation, swelling, exudate, or lesions. Uvula midline. Oral cavity normal. Teeth and gingiva in good general condition. NECK: Neck supple, non-tender without lymphadenopathy. CARDIAC: Normal S1 and S2. No S3, S4 or murmurs. Rhythm is regular. There is no peripheral edema, cyanosis or pallor. Extremities are warm and well perfused. Capillary refill is less than 2 seconds. Peripheral pulses intact. LUNGS: Clear to auscultation without rales, rhonchi, wheezing or diminished breath sounds. ABDOMEN: Positive bowel sounds. Soft, nondistended, nontender. No guarding or rebound. No masses or hepatosplenomegally. MUSKULOSKELETAL: ROM intact to all extremities. No joint erythema or tenderness. Normal muscular development. Normal gait. SKIN: Skin normal color, texture and turgor with no lesions or eruptions. Triage Information Reviewed: Yes Vital Signs: Initial Vital Signs Temp 98.1 F 01/24/19 15:56 Pulse 83 01/24/19 15:56 Resp 19 01/24/19 15:56 BP 126/86 01/24/19 15:56 Pulse Ox 100 01/24/19 15:56 Vital Signs Reviewed: Yes Diagnostics - Radiology No standard instances Radiology Interpretation Completed By: Radiologist Summary of Radiographic Findings: FINDINGS: CARDIOMEDIASTINAL SILHOUETTE: The cardiomediastinal silhouette is normal. KEVIN: The kevin are normal. PLEURA: The costophrenic angles are sharp. No pleural abnormalities are noted. LUNG PARENCHYMA: The lungs are clear. ABDOMEN: The upper abdomen is clear. There is no subphrenic gas. BONES AND SOFT TISSUES: No bone or soft tissue abnormalities are noted. OTHER: None. IMPRESSION: NO ACTIVE CARDIOPULMONARY DISEASE. - EKG Cardiac Rate: NL - Rate 61 Cardiac Rhythm: Sinus: Normal Ectopy: None ST Segment: Normal EKG Comparison: No Significant Change - When compared to EKG from 07/03/2018 - Assessment/Plan Course Of Treatment: 43-year-old female presents with complaints of intermittent chest pain and shortness of breath. States that 10 days ago she was hiking with her sons when she had a sudden onset of feeling as if she could not catch her breath along with intermittent sharp left sided chest pains near the bottom of her lung. States she continued hiking for about 30 minutes and then rested and symptoms subsided. States she has been feeling okay since that time until yesterday when she had a single episode of sharp right sided chest pain near the bottom of her lung. States she continues to feel as if she cannot get a full breath. Denies fever, chills, URI symptoms, cough, diaphoresis, palpitations, abdominal pain, nausea, or vomiting. Reports she has an appointment scheduled with her primary care provider tomorrow to discuss her symptoms. Afebrile. Vital signs stable. Patient's exam was overall unremarkable. EKG showed a normal sinus rhythm at a rate of 61 without ectopy, ST elevation, or T-wave abnormalities. EKG is essentially unchanged when compared to previous from 07/03/2018. Chest x- ray showed no acute cardiopulmonary pathology. Reviewed results with the patient. Recommending that she keep her follow-up with her primary care provider as scheduled tomorrow for further evaluation of her symptoms. Anticipatory guidance and warning symptoms requiring an immediate evaluation in emergency room were reviewed with the patient. Verbalizes understanding and agrees with plan of care. - Differential Diagnoses - Chest Pain Differential Diagnosis/HQI/PQRI: Acute CT, ACS, Lower Respiratory Infection, Pulmonary Embolism - Clinical Impression Provider Diagnosis: Chest pain, Shortness of breath Discharge ED - Sign-Out/Discharge Documenting (check all that apply): Patient Departure All imaging exams completed and their final reports reviewed: Yes - Discharge Plan Condition: Stable Disposition: HOME Patient Education Materials: Chest Pain (ED), Shortness of Breath (ED) Referrals: Valentina Castellanos MD [Primary Care Provider] - 1 Day (Keep your appointment as scheduled.) Additional Instructions: The EKG and CXR performed in the clinic today were both normal. Be sure to keep your appointment with your primary care provider as scheduled tomorrow. Seek immediate medical attention in the emergency room if you have severe and/ or persistent chest pain, feel as if your heart is racing or skipping beats, have worsening shortness of breath, or any worsening of symptoms. - Billing Disposition and Condition Condition: STABLE Disposition: Home - Attestation Statements Provider Attestation: Pt not seen by me. I was available for consult. SD
== END 2019-01-24 17:45 | disposition home or self-care (01) ==
LOC: UCEAST 15:51
DX: R07.9 Chest pain, unspecified (principal); R06.02 Shortness of breath
CPT/HCPCS: 71046; 93005; 99211; G0463